=== PATIENT | female | born 1995 | race African-American/Black ===

== ENCOUNTER 2018-08-17 17:54 | Emergency (ER) | payer OTHER ==
--- NOTE | 2018-08-17 19:08 | PDOC ---
Rapid Medical Evaluation Chief Complaint: Pain Time Seen by Provider: 08/17/18 19:04 Medical Evaluation: 08/17/18 19:05 23 year old female with generalized abdominal pain and back pain x 1 month. + nausea last bm soft stool today. denies urinary symptoms denies vomiting, A: abdominal pain P: ua urine patient to the ER for further management of care. 08/17/18 19:08 Discharge Disposition - Diagnosis Abdominal pain Qualifiers: Abdominal location: generalized Qualified Code(s): R10.84 - Generalized abdominal pain - Referrals - Patient Instructions - Post Discharge Activity
[2018-08-17 19:10] VITALS: BP 139/69; PULSE 78; TEMP 97.8; BMI 43.5
[2018-08-17 20:00] LABS: URINE APPEARANCE CLEAR; URINE BILIRUBIN NEGATIVE (<2.0 mg/dL); URINE COLOR YELLOW; URINE GLUCOSE (UA) NEGATIVE (NEGATIVE); URINE KETONE NEGATIVE (NEGATIVE); URINE LEUK ESTERASE NEGATIVE (NEGATIVE); URINE NITRITE NEGATIVE (NEGATIVE); URINE PROTEIN NEGATIVE (NEGATIVE)
[2018-08-17 20:01] LABS: HCG,QUALITATIVE URINE Negative
--- NOTE | 2018-08-17 20:21 | PDOC ---
Attending Attestation - Resident Resident Name: Clement Tian - ED Attending Attestation I have performed the following: I have examined & evaluated the patient, The case was reviewed & discussed with the resident, I agree w/resident's findings & plan, Exceptions are as noted - Physicial Exam PE: 08/17/18 20:51 Patient is awake and alert, morbidly obese, in no distress Normocephalic/atraumatic, PERRLA/EOMI CTA RRR Abdomen is soft, nontender, nondistended, bowel sounds present in all 4 quadrants there is no CVA tenderness bilaterally No midline TLS spine tenderness to palpation; straight leg raise is negative bilaterally; Gait is stable - Medical Decision Making 08/17/18 20:56 Patient is a morbidly obese 23-year-old female who presents to the ER with 2 months of intermittent abdominal and back pain. In the ER, during the evaluation , patient is pain free. Abdominal exam reveals no focal tenderness; TLS spine evaluation reveals no midline tenderness to palpation, there is no CVA tenderness. I do not suspect acute appendicitis/diverticulitis/ovarian torsion or pyelonephritis. Nephrolithiasis is unlikely. Urinalysis within normal limit. We'll administer Toradol and will discharge with [facility] follow-up. <Adalid Richard - Last Filed: 08/17/18 20:51> - HPI HPI: 08/17/18 21:02 The patient is a 23-year-old female with no significant past medical history presents to the emergency department with abdominal and back pain. The patient reports a 2-month history of lower back pain, thats worse at movement and a month of abdominal pain, more felt to the epigastric region. <Donna Morales - Last Filed: 08/17/18 21:04>
[2018-08-17] MEDS ORDERED: RANITIDINE HCL 150 MG TABLET (FP) PO ONE (20:24)
[2018-08-17] MEDS ORDERED: ACETAMINOPHEN 325 MG TABLET (FP) PO ONE (20:24)
[2018-08-17] MEDS ORDERED: KETOROLAC TROMETHAMINE 60 MG/2 ML VIAL IM ONE (20:24)
--- NOTE | 2018-08-17 20:24 | PDOC ---
History of Present Illness - General Chief Complaint: Pain Stated Complaint: ABD PAIN/BACK PAIN Time Seen by Provider: 08/17/18 19:04 History Source: Patient Exam Limitations: No Limitations - History of Present Illness Initial Comments: 08/17/18 20:41 Patient is a 23F with no significant medical history here today complaining of back pain for the past two months and abdominal pain for the past month. She states that she's coming in today because she's worried that it might "be something". Patient's back pain is in the lower right aspect of her back and is worse with movement. Denies fevers, chills, nausea, vomiting. Denies IVDA, cancer history, urinary retention, saddle anesthesia. Abdominal pain is worse in epigastric region with radiation to the chest, but she's not feeling pain at this time. Denies dysuria, LMP one week ago. No vaginal pain or vaginal discharge. Past History - Past Medical History Allergies/Adverse Reactions: Allergies Allergy/AdvReac Type Severity Reaction Status Date / Time No Known Allergies Allergy Verified 08/17/18 19:07 COPD: No - Suicide/Smoking/Psychosocial Hx Smoking History: Never smoked Hx Alcohol Use: No Drug/Substance Use Hx: No Review of Systems - Review of Systems Comments:: 08/17/18 20:45 GENERAL/CONSTITUTIONAL: No fever or chills. No weakness. HEAD, EYES, EARS, NOSE AND THROAT: No change in vision. No sore throat. CARDIOVASCULAR: No chest pain or shortness of breath RESPIRATORY: No cough, wheezing, or hemoptysis. GASTROINTESTINAL: +nausea, no vomiting, diarrhea or constipation. GENITOURINARY: No dysuria, frequency, or change in urination. MUSCULOSKELETAL: No joint or muscle swelling or pain. No neck or back pain. SKIN: No rash NEUROLOGIC: No headache, vertigo, loss of consciousness, or change in strength/ sensation. ENDOCRINE: No increased thirst. No abnormal weight change HEMATOLOGIC/LYMPHATIC: No anemia, easy bleeding, or history of blood clots. ALLERGIC/IMMUNOLOGIC: No hives or skin allergy. *Physical Exam - Vital Signs Last Vital Signs Temp Pulse Resp BP Pulse Ox 97.8 F 78 18 139/69 99 08/17/18 19:08 08/17/18 19:08 08/17/18 19:08 08/17/18 19:08 08/17/18 19:08 - Physical Exam Comments: 08/17/18 20:45 GENERAL: Awake, alert, and fully oriented, in no acute distress HEAD: No signs of trauma, normocephalic, atraumatic EYES: PERRLA, EOMI, sclera anicteric, conjunctiva clear ENT: Auricles normal inspection, hearing grossly normal, nares patent, oropharynx clear without exudates. Moist mucosa NECK: Normal ROM, supple, no lymphadenopathy, JVD, or masses LUNGS: No distress, speaks full sentences, clear to auscultation bilaterally HEART: Regular rate and rhythm, normal S1 and S2, no murmurs, rubs or gallops, peripheral pulses normal and equal bilaterally. ABDOMEN: Soft, nontender, normoactive bowel sounds. No guarding, no rebound. No masses EXTREMITIES: Normal inspection, Normal range of motion, no edema. No clubbing or cyanosis. NEUROLOGICAL: Cranial nerves II through XII grossly intact. Normal speech, normal gait, no focal sensorimotor deficits SKIN: Warm, Dry, normal turgor, no rashes or lesions noted. BACK: +R lower back tenderness, + straight leg test, no midline tenderness ED Treatment Course - ADDITIONAL ORDERS Additional order review: Laboratory Results 08/17/18 19:10 Urine Color Yellow Urine Appearance Clear Urine pH 6.0 Ur Specific [place] 1.030 Urine Protein Negative Urine Glucose (UA) Negative Urine Ketones Negative Urine Blood Negative Urine Nitrite Negative Urine Bilirubin Negative Urine Urobilinogen 2.0 H Ur Leukocyte Esterase Negative Urine HCG, Qual Negative Medical Decision Making - Medical Decision Making 08/17/18 20:46 Patient is a 23F with no significant medical history here today complaining of abdominal pain and back pain. Vitals normal and stable. Exam benign. No red flags for back or abdominal pain. UA/Upreg neg. Will arrange with primary care. Will treat with ranitidine, tylenol, toradol. Will discharge home. *DC/Admit/Observation/Transfer Diagnosis at time of Disposition: Back pain Abdominal pain Qualifiers: Abdominal location: generalized Qualified Code(s): R10.84 - Generalized abdominal pain - Discharge Dispostion Disposition: HOME Condition at time of disposition: Good Decision to Admit order: No - Referrals Referrals: Daniel Angeles MD [Primary Care Provider] - [facility] [place] [facility] [place] [Provider Group] Judith Morgan MD [Staff Physician] - - Patient Instructions Printed Discharge Instructions: DI for Low Back Pain, DI for Abdominal Pain- Adult Additional Instructions: Please follow up with the primary care doctor and obgyn referral below regarding your back and abdominal pain. Please return if you have any new, worsening or concerning symptoms, especially fever, increasing pain, and vomiting. - Post Discharge Activity
[2018-08-17] MEDS ORDERED: ACETAMINOPHEN 325 MG TABLET (FP) ONE (21:11)
[2018-08-17] MEDS ORDERED: KETOROLAC TROMETHAMINE 60 MG/2 ML VIAL ONE (21:11)
[2018-08-17] MEDS ORDERED: RANITIDINE HCL 150 MG TABLET (FP) ONE (21:11)
== END 2018-08-17 21:32 | disposition home or self-care (01) ==
LOC: JER 17:54
PROC: 3E0233Z Introduction of Anti-inflammatory into Muscle, Percutaneous Approach (ICD-10-PCS; principal; 2018-08-17)
DX: R10.84 Generalized abdominal pain (principal); E66.01 Morbid (severe) obesity due to excess calories; Z68.41 Body mass index [BMI] 40.0-44.9, adult
CPT/HCPCS: 81003; 84703; 96372; 99281-25